=== PATIENT | male | born 1960 | race Caucasian/White ===

== ENCOUNTER 2022-09-22 08:11 | Emergency (ER) | payer BC ==
[~2022-09-22] VITALS: Ht 170.2 cm; Wt 122.5 kg
[2022-09-22] MEDS ORDERED: ESCI20 PO (09:25)
[2022-09-22] MEDS ORDERED: CARAC30 G2 TOP (09:26)
[2022-09-22] MEDS ORDERED: LOSA50 PO (09:27)
[2022-09-22] MEDS ORDERED: TRIA50 PO (09:27)
[2022-09-22] MEDS ORDERED: PRAZ1 PO (09:27)
[2022-09-22] MEDS ORDERED: ROSU10TA PO (09:27)
[2022-09-22 09:45] VITALS: BP 134/94
[2022-09-22] MEDS ORDERED: Prednisone50 MG PO (09:46)
[2022-09-22] MEDS ORDERED: DOXY100 PO (09:46)
[2022-09-22 09:47] LABS: BASOPHILS ABSOLUTE AUTO 0.03 K/mm3 (0.00-0.23); BASOPHILS PERCENT AUTO 1 % (0-2); EOSINOPHILS ABSOLUTE AUTO 0.29 K/mm3 (0.00-0.68); EOSINOPHILS PERCENT AUTO 5 % (0-6); Hematocrit 39.4 % (37.0-53.0); Hemoglobin 13.7 g/dL (13.5-17.5); IMMATURE GRAN ABSOLUTE AUTO 0.02 K/mm3 (0.00-0.10); IMMATURE GRAN PERCENT AUTO 0 % (0-1); LYMPHOCYTES PERCENT AUTO 29 % (21-46); MONOCYTES ABSOLUTE AUTO 0.47 K/mm3 (0.16-1.47); MONOCYTES PERCENT AUTO 8 % (4-13); Mean Corpuscular HGB 31.2 pg (26.0-34.0); Mean Corpuscular HGB Conc 34.8 g/dL (31.5-36.5); Mean Corpuscular Volume 90 fL (80-100); Mean Platelet Volume 9.5 fL (9.1-12.4); NEUTROPHILS ABSOLUTE AUTO 3.45 K/mm3 (1.96-9.15); NEUTROPHILS PERCENT AUTO 58 % (41-73); Platelet Count 187 K/mm3 (150-400); RDW Coefficient Variation 12.4 % (11.7-14.2); RDW Standard Deviation 41.1 fL (35.1-46.3); Red Blood Cell Count 4.39 M/mm3 (4.30-5.90); White Blood Cell Count 5.96 K/mm3 (4.00-11.30)
== END 2022-09-22 09:57 | disposition home or self-care (01) ==
LOC: ER 08:11
PROVIDERS: Emergency Medicine
DX: J20.9 Acute bronchitis, unspecified (principal); I10 Essential (primary) hypertension; E78.00 Pure hypercholesterolemia, unspecified
CPT/HCPCS: 84484; 85025; 99283; J7512

== ENCOUNTER 2022-12-28 11:30 | Day surgery (SDC) | payer OTHER ==
[~2022-12-28] VITALS: Ht 170.2 cm; Wt 117.1 kg
[~2022-12-28 11:30] MED LIST: CARAC30 G2 TOP; DOXY100 PO; ESCI20 PO; LOSA50 PO; PRAZ1 PO; Prednisone50 MG PO; ROSU10TA PO; TRIA50 PO
[2022-12-28] MEDS ORDERED: HYDCHL25 (12:08)
[2022-12-28] MEDS ORDERED: WEGOVY0.25 MG/0. (12:09)
[2022-12-28 15:02] VITALS: BP 134/94
== END 2022-12-28 15:02 | disposition home or self-care (01) ==
LOC: ORSCSDS 11:30
PROVIDERS: Internal Medicine Gastroenterology
PROC: 0DBL8ZX Excision of Transverse Colon, Via Natural or Artificial Opening Endoscopic, Diagnostic (ICD-10-PCS; principal; 2022-12-28 13:00)
DX: Z12.11 Encounter for screening for malignant neoplasm of colon (principal); D12.3 Benign neoplasm of transverse colon; I10 Essential (primary) hypertension; K57.30 Diverticulosis of large intestine without perforation or abscess without bleeding; K64.4 Residual hemorrhoidal skin tags; E78.5 Hyperlipidemia, unspecified; Z68.41 Body mass index [BMI] 40.0-44.9, adult; G47.33 Obstructive sleep apnea (adult) (pediatric); Z79.85 Long-term (current) use of injectable non-insulin antidiabetic drugs; Z79.899 Other long term (current) drug therapy
CPT/HCPCS: 88305; J2704; J7120